=== PATIENT | male | born 1990 | race Hispanic/Latino ===

== ENCOUNTER 2023-10-14 21:44 | Emergency (ER) | payer OTHER, SELFPAY ==
[2023-10-14 22:08] VITALS: BP 127/88
[2023-10-15] MEDS: CYCLOGYL 1% EYE DROPS 1 DROP OPHTH (00:39)
[2023-10-15 00:44] VITALS: BP 130/79
[2023-10-15 00:46] VITALS: BP 130/79
--- NOTE | 2023-10-17 09:53 | ED.GENMED ---
History of Present Illness
General
Chief Complaint: Eye Problems
Source: patient
Exam Limitations: none
Time Seen by Provider: 10/14/23 23:28
Nursing documentation reviewed up to this point in time: agreed with
Travel History
Have you had any contact with someone who has COVID-19?: No
Do you have any symptoms of coronavirus? Fever > 100 degrees, chills, cough, shortness of breath, sore throat, loss of taste or smell, muscle aches, or headache?: No
History of Present Illness
History of Present Illness:
33 y/o M
no pmh
was playing soccer 1 week ago
hit in the [employer]
has had some irritation, redness, photophobia x 1 week
not improving despite some eye drops applied for redness
no significant vision changes
no periorbital sswelling, no lacerations, no bleeding, no leakage of fluidi
Past History
Past History
ED Past Medical History: None
ED Past Surgical History: Appendectomy
Social History
Tobacco: Non-smoker
Alcohol: None
Review of Systems
Review of Systems
Allergies reviewed?: Yes
All Other Systems: Not applicable
Phy Exam
Physical Exam
Physical Exam:
GENERAL: Alert , in no apparent distress
HEAD: NCAT no swelling
NECK: no midline tenderness, active ROM intact, no paraspinal muscle tenderness;
EYE: pupils equal and reactive 4 mm EOMs intact.
injected R conjunctiva
no hyphema
no drainage
no orbital tenderness
full rom of eye
no fluroscein uptake on floyd lamp
CARDIAC: Regular rate and rhythm, no edema
LUNGS: Clear breath sounds bilaterally, no acute respiratory distress, no wheezes/rales/rhonchi
skin: no lacerations, bruising
neuro: intact
PSYCH: Normal and appropriate interaction.
Course
Orders/Labs/Results
Orders:
Orders
10/14/23 23:53
Fluorescein Sodium [Ful-Thea] 4 mg .ROUTE .STK-MED ONE
10/15/23 00:18
Cyclopentolate 1% [Cyclogyl 1% Eye Drops] See Dose Instructions OPHTH ONCE ONE
10/15/23 00:19
Tetracaine HCl [Tetracaine 0.5% Ophthalmic Solution] 1 drop .ROUTE .STK-MED ONE
Vital Signs
Initial and Last Documented VS:
Initial Vital Signs
Temp Pulse Resp BP Pulse Ox
98.4 F 91 18 127/88 99
10/14/23 22:08 10/14/23 22:08 10/14/23 22:08 10/14/23 22:08 10/14/23 22:08
Last Documented Vital Signs
Temp Pulse Resp BP Pulse Ox
98.4 F 74 18 130/79 99
10/14/23 22:08 10/15/23 00:46 10/14/23 22:08 10/15/23 00:46 10/14/23 22:08
MDM/Problems Addressed
Differential Diagnosis Includes:
iritis, conjucntivitis, fb, abrasion
MDM/Problems Addressed:
33-year-old male no medical problems got hit in the right face by a soccer ball 1 week ago continues to have eye irritation, erythema of his conjunctiva and some mild photophobia. He has been applying some topical drops. He has not a contact lens
wear, he does not use glasses. He is not reporting any vision changes. There is no periorbital edema, no leakage of fluid to suggest a ruptured globe, normal round reactive pupil, injected conjunctive a, no fluorescein uptake on Floyd lamp. I
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 There is no officer captain available liquefaction supervisor to set the patient up for follow-up so I encouraged him to follow-up with [facility]. I told him that he could go tonight where he could go in the morning, given this is a week old we will try round of Cyclogyl only for 3 to 4 days. This was discussed with ED attending who agreed. Return precautions given
*Critical Care Note
Total Time (30-74mins, 75-104mins- exclusive of procedures): Not Applicable
ED Attending Note
-
Portions of this chart may have been created with voice recognition software.� Occasional wrong word or��sound alike� substitutions may have occurred due to the inherent limitations of voice recognition software.
Discharge Plan
Departure
Patient Disposition: Home (Routine Discharge)
Date of Disposition: 10/15/23
Time of Disposition: 00:20
Patient with high blood pressure during this ER visit?: No
Condition: Fair
Covid-19: Not Applicable
Discharge Problem:
Iritis
Instructions: Uveitis (DC)
Referrals:
NONE,* [Family Provider] -
Activity Restrictions/Additional Instructions:
You probably have an inflammation in your anterior chamber called iritis. Use 1 drop of this medicine in your right eye 3 times a day for 3 to 4 days. You need to follow-up with an eye doctor. It is very urgent that you see them. If you do not
have insurance you can go to [facility] in the [facility].
You should go tomorrow. They have an emergency room that is open 24 hours, you can also go tonight if you would like
[facility]
�
[address] [place] [address]
(Enter on [facility] [address] through
[facility])
[phone]
MAKE SURE TO RETURN FOR ANY CONCERNS.
Interventions
Interventions:
*Risk Screen - Suicide Last Done: 10/14/23 22:43
*General Assessment Last Done: 10/14/23 22:43
*Neglect/Abuse Screening Last Done: 10/15/23 00:46
*Nursing Disposition Last Done: 10/15/23 00:46
Discharge Date and Time
Discharge Date/Time: 10/15/23 00:46
Print Language: MEXICAN
== END 2023-10-15 00:46 | disposition home or self-care (01) ==
LOC: EMR 21:44
PROVIDERS: EMERGENCY PHYSICIAN Emergency Medicine
DX: H20.9 Unspecified iridocyclitis (principal); W21.02XA Struck by soccer ball, initial encounter
CPT/HCPCS: 99283

== ENCOUNTER → 2023-12-21 10:45 | Outpatient (REF) | payer OTHER, SELFPAY ==
[2023-12-21 12:44] LABS: % Basophils 0.8 % (0-2); % Eosinophils 1.2 % (0-6); % Immature Granulocytes 0.3 % (0-0.5); % Lymphocytes 31.1 % (20.5-51.1); % Monocytes 9.3 % (1.7-9.3); % Neutrophils 57.3 % (42.2-75.2); Absolute Basophils 0.1 10^3/uL (0-0.2); Absolute Eosinophils 0.1 10^3/uL (0-0.7); Absolute Lymphocytes 2.4 10^3/uL (1.2-3.4); Absolute Monocytes 0.7 10^3/uL (0.1-0.6); Absolute Neutrophils 4.5 10^3/uL (1.4-6.5); Hematocrit 43.3 % (39.0-52.0); Hemoglobin 15.1 g/dL (13.0-18.0); Mean Corp Hgb Conc. 34.9 g/dL (33.0-37.0); Mean Corpuscular Hgb 30.8 pg (27.0-31.0); Mean Corpuscular Volume 88.4 fL (80.0-94.0); Mean Platelet Volume 10.1 fL (7.4-10.4); Nucleated Red Blood Cells % 0 % (-); Platelet Count 343 10^3/uL (130-400); Red Cell Dist. Width 13.3 % (11.5-14.5); White Blood Cell Count 7.8 10^3/uL (4.8-10.8)
[2023-12-21 12:56] LABS: ALT (SGPT) 122 U/L (0-50); AST (SGOT) 76 U/L (17-59); Albumin 4.9 g/dl (3.5-5.0); Alkaline Phosphatase 95 U/L (38-126); Blood Urea Nitrogen 15 mg/dl (9-20); Calcium 9.8 mg/dl (8.4-10.2); Carbon Dioxide 25 mmol/L (22-30); Chloride 102 mmol/L (98-107); Glucose 82 mg/dl (70-99); HDL Cholesterol 46 mg/dl; LDL Cholesterol, Calculated 137 mg/dl; Potassium 4.5 mmol/L (3.5-5.1); Sodium 138 mmol/L (135-145); Total Bilirubin 1.6 mg/dl (0.2-1.3); Total Cholesterol 208 mg/dl (50-199); Total Protein 7.6 g/dl (6.3-8.2); Triglyceride 125 mg/dl (10-149); Very Low Density Lipoprotein 25 mg/dl (0-30); eGFR > 60.00
[2023-12-21 13:13] LABS: Vitamin D, 25-OH*** 35.3 ng/mL (30-80)
[2023-12-21 13:27] LABS: TSH Reflex To Free T4 1.37 uIU/ml (0.47-4.68)
[2023-12-21 14:41] LABS: Glycohemoglobin (HgbA1c) 5.3 % (4.0-5.6)
== END ==
LOC: CLINIC 10:45
PROVIDERS: ATTENDING PHYSICIAN Nurse Practitioner Acute Care
DX: E78.5 Hyperlipidemia, unspecified (principal)
CPT/HCPCS: 80053; 80061; 82306; 83036; 84443; 85025

== ENCOUNTER → 2023-12-31 06:36 | Outpatient (REF) | payer OTHER, SELFPAY ==
[2023-12-31 08:28] LABS: ALT (SGPT) 81 U/L (0-50); AST (SGOT) 47 U/L (17-59); Albumin 4.4 g/dl (3.5-5.0); Alkaline Phosphatase 102 U/L (38-126); Blood Urea Nitrogen 13 mg/dl (9-20); Calcium 9.2 mg/dl (8.4-10.2); Carbon Dioxide 25 mmol/L (22-30); Chloride 104 mmol/L (98-107); GGTP 70 U/L (15-73); Glucose 98 mg/dl (70-99); Potassium 4.4 mmol/L (3.5-5.1); Sodium 138 mmol/L (135-145); Total Bilirubin 0.7 mg/dl (0.2-1.3); Total Protein 6.8 g/dl (6.3-8.2); eGFR > 60.00
[2023-12-31 09:00] LABS: Hepatitis B Surface Antigen Negative (Negative)
== END ==
LOC: CLINIC 06:36
PROVIDERS: ATTENDING PHYSICIAN Nurse Practitioner Acute Care
DX: R79.89 Other specified abnormal findings of blood chemistry (principal); R94.5 Abnormal results of liver function studies
CPT/HCPCS: 36415; 80053; 82977; 87340; 87902

== ENCOUNTER → 2025-05-11 08:21 | Outpatient (REF) | payer OTHER, SELFPAY ==
[2025-05-11 09:18] LABS: Hematocrit 47.2 % (39.0-52.0); Hemoglobin 15.8 g/dL (13.0-18.0); Mean Corp Hgb Conc. 33.5 g/dL (33.0-37.0); Mean Corpuscular Volume 91.5 fL (80.0-94.0); Platelet Count 282 10^3/uL (130-400); Red Cell Dist. Width 12.7 % (11.5-14.5)
[2025-05-11 09:59] LABS: ALT (SGPT) 92 U/L (0-50); AST (SGOT) 43 U/L (17-59); Albumin 4.9 g/dl (3.5-5.0); Alkaline Phosphatase 77 U/L (38-126); Blood Urea Nitrogen 14 mg/dl (9-20); Calcium 9.6 mg/dl (8.4-10.2); Carbon Dioxide 31 mmol/L (22-30); Chloride 102 mmol/L (98-107); Glucose 95 mg/dl (70-99); HDL Cholesterol 38 mg/dl; LDL Cholesterol, Calculated 132 mg/dl; Potassium 4.7 mmol/L (3.5-5.1); Sodium 139 mmol/L (135-145); Total Protein 7.5 g/dl (6.3-8.2); Very Low Density Lipoprotein 43 mg/dl (0-30); eGFR > 60.00
== END ==
LOC: REG 08:21
PROVIDERS: ATTENDING PHYSICIAN Nurse Practitioner Adult Health
DX: Z00.00 Encounter for general adult medical examination without abnormal findings (principal); R94.5 Abnormal results of liver function studies; E78.5 Hyperlipidemia, unspecified
CPT/HCPCS: 36415; 80053; 80061; 85027